=== PATIENT | female | born 1975 | race American Indian/Alaskan Native ===

== ENCOUNTER 2017-03-19 05:42 | Emergency (ER) | payer BC, OTHER ==
--- NOTE | 2017-03-19 06:40 | XRay Report ---
FINAL REPORT PROCEDURE: XR ABDOMEN 2V TECHNIQUE: Abdominal series, including supine and upright AP views. HISTORY: abdominal pain/ COMPARISON: No prior studies are available for comparison. FINDINGS: Bowel gas pattern:Nonobstructive bowel gas pattern. There is moderate fecal debris in the colon and in the rectum.. Masses or calcifications:None . Bony structures:No significant abnormality . Pneumoperitoneum:None . Other:No significant findings . IMPRESSION: Moderate fecal debris throughout colon and in the rectum. Constipation is possible..
--- NOTE | 2017-03-19 10:23 | Emergency Department Report ---
ED General Adult HPI - General Chief complaint: Abdominal Pain Stated complaint: POST OP PAIN HEMORRHOIDECTOMY Time Seen by Provider: 03/19/17 10:18 Source: patient Mode of arrival: Ambulatory Limitations: No Limitations - History of Present Illness Initial comments: Patient states that she was concerned because she did not have a bowel movement within 24 hours. She states that her mother is an ER nurse and told her she should be evaluated if this happens. She states that she had some crampy abdominal pain and urged to go to the bathroom but this has subsided. She has no abdominal pain whatsoever now. She has no rectal bleeding. She status post a hemorrhoidectomy on 03/03/2017. She states that she is to use a variety of [id number] medications without success. She has not been vomiting. She is not nauseated. She does not have any abdominal pain at the time of my encounter. -: hour(s) (states 24 hours) Quality: other (cramping) Consistency: intermittent Improves with: none Worsens with: none Associated Symptoms: denies other symptoms Treatments Prior to Arrival: none - Related Data Home Medications Medication Instructions Recorded Confirmed Last Taken Percocet 7.5/325 mg 1 tab PO Q6H PRN 03/19/17 03/19/17 Unknown Previous Rx's Medication Instructions Recorded Last Taken Type Polyethylene Glycol/Elect 1,000 ml PO ONCE #1 bottle 03/19/17 Unknown Rx [Golytely] Allergies Allergy/AdvReac Type Severity Reaction Status Date / Time No Known Allergies Allergy Unverified 03/19/17 05:59 ED Review of Systems ROS: Stated complaint: POST OP PAIN HEMORRHOIDECTOMY Other details as noted in HPI Constitutional: denies: chills, fever Eyes: denies: eye pain, eye discharge, vision change ENT: denies: ear pain, throat pain Respiratory: denies: cough, shortness of breath, wheezing Cardiovascular: denies: chest pain, palpitations Endocrine: no symptoms reported Gastrointestinal: as per HPI, constipation. denies: nausea, diarrhea Genitourinary: denies: urgency, dysuria, discharge Musculoskeletal: denies: back pain, joint swelling, arthralgia Skin: denies: rash, lesions Neurological: denies: headache, weakness, paresthesias Psychiatric: denies: anxiety, depression Hematological/Lymphatic: denies: easy bleeding, easy bruising ED Past Medical Hx - Past Medical History Previous Medical History?: No - Surgical History Additional Surgical History: Hemorrhoidectomy - Social History Smoking Status: Never Smoker Substance Use Type: None - Medications Home Medications: Home Medications Medication Instructions Recorded Confirmed Last Taken Type Percocet 7.5/325 mg 1 tab PO Q6H PRN 03/19/17 03/19/17 Unknown History Polyethylene Glycol/Elect 1,000 ml PO ONCE #1 bottle 03/19/17 Unknown Rx [Golytely] ED Physical Exam - General Limitations: No Limitations General appearance: alert, in no apparent distress - Head Head exam: Present: atraumatic, normocephalic - Eye Eye exam: Present: normal appearance. Absent: scleral icterus - ENT ENT exam: Present: normal exam, mucous membranes moist - Neck Neck exam: Present: normal inspection - Respiratory Respiratory exam: Present: normal lung sounds bilaterally. Absent: respiratory distress - Cardiovascular Cardiovascular Exam: Present: regular rate, normal rhythm. Absent: systolic murmur, diastolic murmur, rubs, gallop - GI/Abdominal GI/Abdominal exam: Present: soft, normal bowel sounds. Absent: distended, tenderness, guarding, rebound, rigid - Extremities Exam Extremities exam: Present: normal inspection - Back Exam Back exam: Present: normal inspection - Neurological Exam Neurological exam: Present: alert, oriented X3, CN II-XII intact. Absent: motor sensory deficit - Psychiatric Psychiatric exam: Present: normal affect, normal mood - Skin Skin exam: Present: warm, dry, intact, normal color. Absent: rash ED Course Vital Signs 03/19/17 05:49 Temperature 97.8 F Pulse Rate 79 Respiratory 16 Rate Blood Pressure 131/81 Blood Pressure 131/81 [Left] O2 Sat by Pulse 100 Oximetry - Reevaluation(s) Reevaluation #1: Nursing attempted to give the patient a soapsuds enema. This was not tolerated. The patient spoke to her surgeon who recommended that we give her a prescription for GoLYTELY. I also gave the patient a shot of Relistor. She states she feels fine and ready to go home. 03/19/17 12:50 Critical care attestation.: If time is entered above; I have spent that time in minutes in the direct care of this critically ill patient, excluding procedure time. ED Disposition Clinical Impression: Status post hemorrhoidectomy Constipation Qualifiers: Constipation type: unspecified constipation type Qualified Code(s): K59.00 - Constipation, unspecified Abdominal pain Qualifiers: Abdominal location: generalized Qualified Code(s): R10.84 - Generalized abdominal pain Disposition: TO HOME OR SELFCARE Is pt being admited?: No Does the pt Need Aspirin: No Condition: Stable Instructions: Abdominal Pain (ED) Additional Instructions: Follow-up with your surgeon. Return as needed any acute change or problem especially if you develop vomiting or significant abdominal pain. Prescriptions: Polyethylene Glycol/Elect [Golytely] 1,000 ml PO ONCE #1 bottle Referrals: PRIMARY CARE,MD [Primary Care Provider] - 3-5 Days usual, surgeon [Other] - 3-5 Days Time of Disposition: 12:52
[2017-03-19] MEDS ORDERED: RELISTOR SUB-Q ONE (11:38)
[2017-03-19] MEDS ORDERED: FLEET PR ONE (12:43)
[2017-03-19 13:06] VITALS: BP 128/78
== END 2017-03-19 13:06 | disposition home or self-care (01) ==
LOC: ED 05:42
DX: K59.00 Constipation, unspecified (principal); R10.84 Generalized abdominal pain
CPT/HCPCS: 74020; 96372; 99283; J2212